=== PATIENT | male | born 1960 | race Caucasian/White ===

== ENCOUNTER 2020-02-20 08:43 | Inpatient (IN) ==
--- NOTE | 2020-02-20 09:04 | ERNOTE ---
GI Bleeding/Rectal Pain ER Presenting Symptoms: rectal bleeding Time Seen by Provider: 02/20/20 08:45 Source: patient Exam Limitations: no limitations Immunizations: IMMUNIZATION HX Immunizations Up to Date Yes History of Influenza Vaccine Yes Allergies/Adverse Reactions: Allergies No Known Allergies Allergy (Verified 02/20/20 11:45) Home Medications: HOME MEDICATIONS cephalexin 500 mg capsule 500 mg PO QID 02/15/19 [Last Taken Unknown] Furosemide [Lasix] 40 mg PO DAILY 02/15/20 [Last Taken Unknown] Mometasone Furoate/Dimethicone [Quinixil Kit] 159 gm TOPICAL BID 02/15/20 [Last Taken Unknown] Sulfamethoxazole/Trimethoprim [Bactrim Ds] 2 tab PO DAILY 02/15/20 [Last Taken Unknown] predniSONE [Prednisone] 20 mg PO BID 02/15/20 [Last Taken Unknown] Triamcinolone Acetonide [Kenalog 0.1% Cream] 1 appl TOPICAL DAILY 02/20/20 [Last Taken Unknown] Narrative: Patient went to wound center for follow up for his cellulitis. He reported there that he had been dizzy, having bloody stools, and a low blood pressure and was brought to the ER. Patient states that he usually has one BM per day, two today, stool is loose and mixed with blood the last 4-5? days, he denies nausea or vomiting, no abdominal pain. He has felt light headed, is on keflex and bactrim for leg cellulitis (also treated with an unna boot which can stay on per wound care center) as well as prednisone, patient is very vague in his history, not sure about his medications, when they have started or how long exactly he has had symptoms. He lives at home with his , admits to drinking 'a few' (five beer) every night. Timing: intermittent Nausea/Vomiting: Present: none Abdominal Pain: Present: none Rectal Bleeding: Present: blood mixed with stool Associated Symptoms: Reports: black stools, dizziness, light headedness Prior Treament: Denies: recently seen, similar symptoms before Review of Systems - Review of Systems Constitutional: Present: malaise. Absent: fever, chills ENT: Absent: nose congestion, sore throat Respiratory: Absent: shortness of breath, cough Cardiology: Absent: chest pain Gastrointestinal/Abdominal: Present: See HPI. Absent: nausea, vomiting, abdo gomez pain Genitourinary: Absent: frequency Musculoskeletal: Present: back pain Neurological: Present: dizziness/light-headedness Medical History (Last Reviewed 02/20/20 @ 09:03 by Trisha Gonsalez MD) Degenerative joint disease of right hip Onset Date: Unknown Foot fracture, left Onset Date: 03/12/18 left base 5th MT Hypertension Onset Date: Unknown Knee pain, left Onset Date: Unknown Left knee DJD Onset Date: Unknown Metatarsal fracture Onset Date: 03/12/18 left 5th Surgical History: Surgical History (Last Reviewed 02/20/20 @ 09:03 by Trisha Gonsalez MD) History of gastric bypass Onset Date: 2001 History of knee replacement procedure of left knee Onset Date: 03/24/16 History of right hip replacement Onset Date: 07/03/11 Dr. Block Family History: Family History (Last Reviewed 02/20/20 @ 11:42 by Sharifa Ahumada RN) Father Diabetes Myocardial infarction Mother Cancer lung Social History: (Last Updated 02/20/20 @ 09:04 by Trisha Gonsalez MD) Social History: Marital status: household members: spouse, children current occupational status: unemployed current occupation: unemployed Highest education level completed: Associate degree: [employer] Service: No Tobacco: Smoking Status: Never smoker Smokeless tobacco user: chewing tobacco Alcohol: alcohol intake: current Alcohol type: beer alcohol intake frequency: 3 or more drinks per day Substance Use: substance use type: does not use Dietary Habits: caffeine: No Physical Exam - Physical Exam General Appearance: Present: wd/wn, alert, no apparent distress, anxious Head Exam: Present: normal inspection Eye Exam: Normal inspection: bilateral, PERRL: bilateral Ears, Nose, Throat: Present: normal pharynx Respiratory: Present: no respiratory distress, normal breath sounds, no accessory muscle use, lungs clear Cardiovascular/Chest: Present: regular rate, rhythm, no murmur Gastrointestinal/Abdominal: Present: normal bowel sounds, nontender, nondistended, soft Rectal Exam: Present: nontender, normal rectal tone, normal prostate, other - maroon stool. Absent: hemorrhoids Extremity Exam: Present: other - dressing inplace both legs Neurological Exam: Present: alert, oriented, normal mood/affect Skin Exam: Present: normal color, warm/dry Progress - Results and Orders Patient's Lab Results:: I have reviewed the patient's lab results. - Vital Signs Patient's Vital Signs:: I have reviewed the patient's vital signs. Vital Signs: Vital Signs 02/20/20 08:45 Temperature 36.5 C Pulse Rate 90 Respiratory Rate 18 Blood Pressure 119/75 O2 Sat by Pulse Oximetry 96 - X-Ray X-Ray #1 X-Ray: chest - no acute changes Interpretation: Reviewed by me X-Ray #2 X-Ray: abdomen - no acute changes Interpretation: Reviewed by me - Progress/Reassessment Chief Complaint: General Assessment Progress Note-Subjective: 02/20/20 10:00 anoscope: no obvious lesions or mass, maroon stool 02/20/20 10:30 discussed test results with patient and (over the phone) offered admission, patient agreed He has been rather vague answering questions but now states that he started bleeding when he started his new medication most recent medication seems to be prednisone started on 02/13, patient has history of gastric bypass (is not sure if it was a stapling procedure or gustavo and Y) as stool is maroon consider and patient on prednisone consider upper GI tract as bleeding source, will start protonix 02/20/20 10:36 discussed with jose daniel De La Rosa to admit for observation for GI bleed Departure Clinical Impression: GI bleed Qualifiers: GI bleed type/associated pathology: unspecified gastrointestinal hemorrhage type Qualified Code(s): K92.2 - Gastrointestinal hemorrhage, unspecified - Departure Disposition: Still a patient Condition: Stable
[2020-02-20] MEDS ORDERED: NORMAL SALINE 500 ML IV ONE ×2 (09:09→10:58)
[2020-02-20 09:17] LABS: Hematocrit 31.1 % (42.0-52.0); Hemoglobin 10.6 gm/dL (13.5-18.0); Mean Cell Volume 90.7 fl (78-100); Mean Corpuscular Hemoglobin 30.9 pg (27-31); Mean Corpuscular Hgb Conc 34.1 g/dl (32-36); Neutrophil # 3.3 K/mm3 (1.3-6.0); Neutrophil % 60.3 % (42-75.0); Platelet Count 122 K/mm3 (150-450); Red Blood Count 3.43 M/mm3 (4.7-6.0); Red Cell Distribution Width 19.9 % (11.5-14.0); White Blood Count 5.5 K/mm3 (4.0-10.5)
[2020-02-20 09:26] LABS: Prothrombin Time (Patient) 10.7 Seconds (9.1-10.7)
[2020-02-20 09:27] LABS: INR 1.08 INR (0.92-1.08); Partial Thrombolplastin Time 23.8 Seconds (24-32)
[2020-02-20 09:40] LABS: Albumin * 2.9 gm/dl (3.4-5.0); Anion Gap 17.7 mmol/L (6.8-13.8); BUN/Creatinine Ratio 13.9 (9.0-21.6); Bilirubin, Total 1.2 mg/dL (0.0-1.1); Ca. Corrected For Albumin 8.8 mg/dL (8.4-10.2); Calcium * 8.2 mg/dL (7.9-10.9); Carbon Dioxide 26.8 mmol/L (24-32.6); Potassium 3.5 mmol/L (3.4-4.6)
[2020-02-20] MEDS ORDERED: PANTOPRAZOLE SODIUM 40 MG/100 ML PIGGYBACK IV ONE (10:37)
[2020-02-20 11:12] LABS: Hematocrit 26.4 % (42.0-52.0); Hemoglobin 9.1 gm/dL (13.5-18.0)
--- NOTE | 2020-02-20 14:52 | CONS ---
[facility] - General Date of Service: 02/20/20 Narrative: Patient is a 59-year-old male, recently admitted to the hospital regarding concern for GI bleed. He was initially seen in the wound center approximately 1 week ago regarding venous stasis dermatitis of bilateral lower extremities. At that time his legs were reddened,warm, dry and flaky. There were no open wounds or drainage. The patient had been using various ointments and wearing [id number] diabetic stockings for compression. Due to the irritation and edema, an Unna boot was placed on bilateral lower extremities. Patient had those in place when he presented to our office today. Unfortunately, his blood pressure was difficult to obtain, he was shaky and had concerns with blood in his stools. Due to his abnormal vitals and general appearance, he was taken to the Emergency Department. Following his work-up there, he was admitted for observation. He states that his legs have felt much improved since the use of the Unna boots. He states is still trying to elevate his legs when possible. He has no new concerns regarding his legs at this time. The patient's medical history includes degenerative joint disease of the right hip and left knee, with replacements, hypertension and gastric bypass. - History of Present Illness Timing/Duration: changing over time Allergies/Adverse Reactions: Allergies No Known Allergies Allergy (Verified 02/20/20 11:45) Home Medications: Home Medications Medication Instructions Recorded Last Taken cephalexin 500 mg capsule 500 mg PO QID 02/15/19 Unknown Furosemide [Lasix] 40 mg PO DAILY 02/15/20 Unknown Mometasone Furoate/Dimethicone 159 gm TOPICAL BID 02/15/20 Unknown [Quinixil Kit] Sulfamethoxazole/Trimethoprim 2 tab PO DAILY 02/15/20 Unknown [Bactrim Ds] predniSONE [Prednisone] 20 mg PO BID 02/15/20 Unknown Triamcinolone Acetonide [Kenalog 1 appl TOPICAL DAILY 02/20/20 Unknown 0.1% Cream] Procedures Replacement of Left Knee Joint with Synthetic Substitute, Cemented, Open Approach (03/24/16) Review of Systems - Review of Systems Generalized/Overall Review: Present: Weakness, Chills EENTM: Absent: Nose Congestion Respiratory: Present: Shortness of Breath. Absent: Cough Cardiac: Present: Edema. Absent: Chest Pain Abdominal: Present: Nausea, Melena. Absent: Vomiting Genitourinary: Absent: Incontinent Neurological: Absent: Headache Skin: Absent: Lesions Physical Examination - Exam Vital Signs: Vital Signs - Last Taken Temp 37.3 C 02/20/20 11:57 Pulse 96 02/20/20 11:57 Resp 24 H 02/20/20 11:57 BP 100/57 02/20/20 11:57 Pulse Ox 96 02/20/20 11:57 O2 Oxygen Delivery Method Room Air Constitutional: Present: Alert, Oriented x3, Cooperative, Obese ENT Exam: Present: hearing grossly normal Respiratory: Present: no respiratory distress Extremity: Present: normal range of motion, lower extremity edema Skin Exam: Present: normal color, warm/dry, other - The Unna boots were removed. The patient's symptoms have improved significantly from his visit last week. The redness and irritation has resolved. The edema is much better controlled. There are no open wounds. He continues to have dry flaky skin present. Eye contact: Present: good eye contact, normal speech Thoughts: Present: normal thought pattern - Results and Findings: Lab/Microbiology results last 24 hrs: Abnormal/Pending Laboratory Last 24 HRS 02/20/20 02/20/20 02/20/20 11:07 10:01 09:10 RBC Hgb 9.1 L Hct 26.4 L RDW Plt Count Immature Gran % (Auto) Immature Gran # (Auto) Monocytes % Lymphocytes # PTT ([place]) 23.8 L Anion Gap Random Glucose Total Bilirubin AST ALT Albumin Stool Occult Blood Positive H 02/20/20 02/20/20 09:10 09:10 RBC 3.43 L Hgb 10.6 L Hct 31.1 L RDW 19.9 H Plt Count 122 L Immature Gran % (Auto) 1.50 H Immature Gran # (Auto) 0.08 H Monocytes % 13.7 H Lymphocytes # 1.28 L PTT ([place]) Anion Gap 17.7 H Random Glucose 119 H Total Bilirubin 1.2 H AST 369 H ALT 117 H Albumin 2.9 L Stool Occult Blood - Assessments/Findings (1) Venous stasis dermatitis of both lower extremities Diagnosis(s): There is significant improvement with the discontinuation of the stockings he was wearing as well as the triamcinolone cream. The patient continues to experience dry flaky skin, however the edema is much better controlled. At this time would recommend using a moisturizing cream and washing his legs thoroughly with soap and water. He will be bedridden so his legs will be elevated, may consider Tubigrip. We will reevaluate tomorrow. Problem: Acute
[2020-02-20] MEDS: NORMAL SALINE 1,000 ML IV PRN ×2 (15:06→22:41)
[2020-02-20] MEDS: ONDANSETRON HCL/PF 2 MG/ML VIAL IV PRN ×2 (16:18→22:38)
[2020-02-20 17:34] LABS: Hemoglobin 8.2 gm/dL (13.5-18.0)
[2020-02-20 23:12] LABS: Hemoglobin 8.1 gm/dL (13.5-18.0)
[2020-02-20 23:16] LABS: Hematocrit 23.5 % (42.0-52.0)
[2020-02-21 05:27] LABS: Hematocrit 23.5 % (42.0-52.0); Hemoglobin 7.9 gm/dL (13.5-18.0)
[2020-02-21] MEDS: NORMAL SALINE 1,000 ML IV PRN (06:51)
[2020-02-21] MEDS ORDERED: LORazepam 2 MG/ML DISP.SYRIN IV ONE (07:09)
[2020-02-21] MEDS ORDERED: LORazepam 2 MG/ML DISP.SYRIN IV PRN (08:45)
--- NOTE | 2020-02-21 09:21 | HP ---
Chief Complaint - Chief Complaint Date of Service: 02/20/20 Time of Service: 16:00 Chief Complaint: Blood in stools History of Present Illness: Malachi is a 59 yo male who was being seen in the wound clinic for venous stasis ulcers. He was noted to not be feeling well, tachycardic, having tremor, and reported blood in his stool. He was sent to the ER for further evaluation. Hemoglobin in the ER was 10.6, stool hemoccult positive for blood. He reports being on prednisone but no blood thinners. He admits to drinking 5 beers a day. No known history of varices. He denies any prior blood in the stool. Reports are that stool was maroon in color. Medical History (Last Reviewed 02/20/20 @ 11:42 by Sharifa Ahumada RN) Degenerative joint disease of right hip Onset Date: Unknown Foot fracture, left Onset Date: 03/12/18 left base 5th MT Hypertension Onset Date: Unknown Knee pain, left Onset Date: Unknown Left knee DJD Onset Date: Unknown Metatarsal fracture Onset Date: 03/12/18 left 5th Surgical History: Surgical History (Last Reviewed 02/20/20 @ 11:42 by Sharifa Ahumada RN) History of gastric bypass Onset Date: 2001 History of knee replacement procedure of left knee Onset Date: 03/24/16 History of right hip replacement Onset Date: 07/03/11 Dr. Block Family History: Family History (Last Reviewed 02/20/20 @ 11:42 by Sharifa Ahumada RN) Father Diabetes Myocardial infarction Mother Cancer lung Social History: (Last Reviewed 02/20/20 @ 11:44 by Sharifa Ahumada RN) Social History: senior living: No Marital status: lives independently: Yes household members: spouse, children current occupational status: unemployed current occupation: unemployed Highest education level completed: Associate degree: [email or web address] Service: No Tobacco: Smoking Status: Never smoker Smokeless tobacco user: chewing tobacco quit status: considering quitting counseling given: patient declined Alcohol: alcohol intake: current Alcohol type: beer alcohol intake frequency: 3 or more drinks per day Substance Use: substance use type: does not use Dietary Habits: caffeine: No Review Of Systems (GEN) - Review of Systems Generalized/Overall Review: Present: Weakness, Diaphoresis, Fatigue. Absent: Chills, Fever EENTM: Absent: Eye Pain, Blurred Vision Cardiac: Absent: Chest Pain, Edema Abdominal: Present: Nausea, Other - maroon stools. Absent: Vomiting, Hematemesis, Abdominal Pain, Constipation, Diarrhea Genitourinary: Absent: Burning, Itching Musculoskeletal: Absent: Joint Pain, Back Pain Neurological: Absent: Headache, Anxiety Skin: Present: Other - wounds on legs have healed Immunizations: IMMUNIZATION HX Immunizations Up to Date Yes History of Influenza Vaccine Yes Allergies/Adverse Reactions: Allergies Allergy/AdvReac Type Severity Reaction Status Date / Time No Known Allergies Allergy Verified 02/20/20 11:45 Home Medications: HOME MEDICATIONS cephalexin 500 mg capsule 500 mg PO QID 02/15/19 [Last Taken Unknown] Furosemide [Lasix] 40 mg PO DAILY 02/15/20 [Last Taken Unknown] Mometasone Furoate/Dimethicone [Quinixil Kit] 159 gm TOPICAL BID 02/15/20 [Last Taken Unknown] Sulfamethoxazole/Trimethoprim [Bactrim Ds] 2 tab PO DAILY 02/15/20 [Last Taken Unknown] predniSONE [Prednisone] 20 mg PO BID 02/15/20 [Last Taken Unknown] Triamcinolone Acetonide [Kenalog 0.1% Cream] 1 appl TOPICAL DAILY 02/20/20 [Last Taken Unknown] Exam - Exam Vital Signs: Vital Signs - Last Taken Temp 36.8 C 02/21/20 06:38 Pulse 81 02/21/20 06:38 Resp 14 02/21/20 06:38 BP 140/73 H 02/21/20 06:38 Pulse Ox 93 02/21/20 06:38 Constitutional: Present: Alert, Oriented x3, Cooperative, Other - tremors ENT Exam: Present: hearing grossly normal Eye Exam: bilateral eye: normal inspection Respiratory: Present: lungs clear, normal breath sounds Cardiovascular/Chest: Present: no murmur, tachycardia Abdomen: Present: Normal bowel sounds, soft, nontender, nondistended Skin Exam: Present: other - dry skin, no active wounds Appearance: Present: other - anxious Eye contact: Present: cooperative, good eye contact, increased rate of speech Thoughts: Present: normal thought pattern, no apparent hallucination Diagnostic Studies: Abnormal Lab Results 02/20/20 02/20/20 02/20/20 Range/Units 09:10 09:10 09:10 RBC 3.43 L (4.7-6.0) M/mm3 Hgb 10.6 L (13.5-18.0) gm/dL Hct 31.1 L (42.0-52.0) % RDW 19.9 H (11.5-14.0) % Plt Count 122 L (150-450) K/mm3 Immature Gran % (Auto) 1.50 H (0.001-0.429) % Immature Gran # (Auto) 0.08 H (0.000-0.0310) K/mm3 Monocytes % 13.7 H (0.0-9) % Lymphocytes # 1.28 L (1.5-3.5) k/mm3 PTT ([place]) 23.8 L (24-32) Seconds Anion Gap 17.7 H (6.8-13.8) mmol/L Random Glucose 119 H (70-110) mg/dL Total Bilirubin 1.2 H (0.0-1.1) mg/dL AST 369 H (0-48) U/L ALT 117 H (19-67) U/L Albumin 2.9 L (3.4-5.0) gm/dl Stool Occult Blood 02/20/20 02/20/20 02/20/20 Range/Units 10:01 11:07 17:28 RBC (4.7-6.0) M/mm3 Hgb 9.1 L 8.2 L (13.5-18.0) gm/dL Hct 26.4 L 24.0 L (42.0-52.0) % RDW (11.5-14.0) % Plt Count (150-450) K/mm3 Immature Gran % (Auto) (0.001-0.429) % Immature Gran # (Auto) (0.000-0.0310) K/mm3 Monocytes % (0.0-9) % Lymphocytes # (1.5-3.5) k/mm3 PTT ([place]) (24-32) Seconds Anion Gap (6.8-13.8) mmol/L Random Glucose (70-110) mg/dL Total Bilirubin (0.0-1.1) mg/dL AST (0-48) U/L ALT (19-67) U/L Albumin (3.4-5.0) gm/dl Stool Occult Blood Positive H 02/20/20 02/21/20 Range/Units 23:10 05:15 RBC (4.7-6.0) M/mm3 Hgb 8.1 L 7.9 L* (13.5-18.0) gm/dL Hct 23.5 L* 23.5 L* (42.0-52.0) % RDW (11.5-14.0) % Plt Count (150-450) K/mm3 Immature Gran % (Auto) (0.001-0.429) % Immature Gran # (Auto) (0.000-0.0310) K/mm3 Monocytes % (0.0-9) % Lymphocytes # (1.5-3.5) k/mm3 PTT ([place]) (24-32) Seconds Anion Gap (6.8-13.8) mmol/L Random Glucose (70-110) mg/dL Total Bilirubin (0.0-1.1) mg/dL AST (0-48) U/L ALT (19-67) U/L Albumin (3.4-5.0) gm/dl Stool Occult Blood Laboratory Results WBC 5.5 K/mm3 (4.0-10.5) 02/20/20 09:10 RBC 3.43 M/mm3 (4.7-6.0) L 02/20/20 09:10 Hgb 7.9 gm/dL (13.5-18.0) L* 02/21/20 05:15 Hct 23.5 % (42.0-52.0) L* 02/21/20 05:15 MCV 90.7 fl (78-100) 02/20/20 09:10 MCH 30.9 pg (27-31) 02/20/20 09:10 MCHC 34.1 g/dl (32-36) 02/20/20 09:10 RDW 19.9 % (11.5-14.0) H 02/20/20 09:10 Plt Count 122 K/mm3 (150-450) L 02/20/20 09:10 MPV 10.0 fl (8-11.3) 02/20/20 09:10 Immature Gran % (Auto) 1.50 % (0.001-0.429) H 02/20/20 09:10 Immature Gran # (Auto) 0.08 K/mm3 (0.000-0.0310) H 02/20/20 09:10 Neutrophils % 60.3 % (42-75.0) 02/20/20 09:10 Lymphocytes % 23.4 % (20-51) 02/20/20 09:10 Monocytes % 13.7 % (0.0-9) H 02/20/20 09:10 Eosinophils % 0.4 % (0.0-3.0) 02/20/20 09:10 Basophils % 0.7 % (0.0-1.0) 02/20/20 09:10 Nucleated RBC % 0.0 k/mm3 (0-1) 02/20/20 09:10 Neutrophils # 3.3 K/mm3 (1.3-6.0) 02/20/20 09:10 Lymphocytes # 1.28 k/mm3 (1.5-3.5) L 02/20/20 09:10 Monocytes # 0.8 k/mm3 (0.0-1.0) 02/20/20 09:10 Eosinophils # 0.0 k/mm3 (0.0-0.7) 02/20/20 09:10 Absolute Basophils 0.0 k/mm3 (0.0-0.1) 02/20/20 09:10 PT 10.7 Seconds (9.1-10.7) 02/20/20 09:10 INR (Anticoag Therapy) 1.08 INR (0.92-1.08) 02/20/20 09:10 PTT ([place]) 23.8 Seconds (24-32) L 02/20/20 09:10 Sodium 142 mmol/L (132-142) 02/20/20 09:10 Plasma Sodium 142 mmol/L (130-142) 02/20/20 09:10 Potassium 3.5 mmol/L (3.4-4.6) 02/20/20 09:10 Chloride 101 mmol/L (97-106) 02/20/20 09:10 Carbon Dioxide 26.8 mmol/L (24-32.6) 02/20/20 09:10 Anion Gap 17.7 mmol/L (6.8-13.8) H 02/20/20 09:10 BUN 15 mg/dL (6-23) 02/20/20 09:10 Creatinine 1.08 mg/dL (0.4-1.4) 02/20/20 09:10 Est GFR (Non-Af Amer) 75 mL/min (60-130) D 02/20/20 09:10 BUN/Creatinine Ratio 13.9 (9.0-21.6) 02/20/20 09:10 Random Glucose 119 mg/dL (70-110) H 02/20/20 09:10 Calcium 8.2 mg/dL (7.9-10.9) 02/20/20 09:10 Calcium Adj for Albumin 8.8 mg/dL (8.4-10.2) 02/20/20 09:10 Total Bilirubin 1.2 mg/dL (0.0-1.1) H 02/20/20 09:10 AST 369 U/L (0-48) H 02/20/20 09:10 ALT 117 U/L (19-67) H 02/20/20 09:10 Alkaline Phosphatase 140 U/L (50-170) 02/20/20 09:10 B-Natriuretic Peptide 28 pg/mL (5-175) 02/20/20 09:10 Total Protein 7.0 gm/dL (6.2-8.2) 02/20/20 09:10 Albumin 2.9 gm/dl (3.4-5.0) L 02/20/20 09:10 Stool Occult Blood Positive H 02/20/20 10:01 Assessment/Plan - Narrative Narrative: Malachi is a 59 yo male with: 1) GI Bleed. Will make NPO, place on IV prontonix, get serial hemoglobin, and plan to get nuclear bleeding scan. May need surgery referral. Unknown bleeding site which the nuclear scan may help with. Possible varices due to alcohol history vs alcoholic gastritis vs lower intestinal source. 2) Alcohol abuse - Will monitor CIWA and use ativan prn. 3) Social - Will admit to observation at this time. If hemoglobin drops he may need admitted to inpatient status and receive blood transfusion. - Assessment/Plan (1) GI bleed Problem: Acute Qualifiers: GI bleed type/associated pathology: unspecified gastrointestinal hemorrhage type Qualified Code(s): K92.2 - Gastrointestinal hemorrhage, unspecified (2) Alcohol abuse Problem: Acute
[2020-02-21] MEDS: FOLIC ACID 1 MG TABLET PO SCH (10:22)
[2020-02-21] MEDS: THIAMINE HCL 100 MG TABLET PO SCH (10:22)
[2020-02-21] MEDS: PANTOPRAZOLE SODIUM 40 MG in NORMAL SALINE 100 ML IV SCH ×2 (10:22→20:17)
[2020-02-21 11:25] LABS: Hematocrit 22.5 % (42.0-52.0); Hemoglobin 7.7 gm/dL (13.5-18.0)
[2020-02-21] MEDS ORDERED: LORazepam 0.5 MG TABLET PO ONE (14:21)
[2020-02-21] MEDS ORDERED: HYDROCORTISONE 30 APPL TUBE TP ONE ×2 (17:10→21:00)
[2020-02-21] MEDS: FERROUS SULFATE 325 MG TABLET PO SCH (17:19)
[2020-02-21] MEDS: LORazepam 1 MG TABLET PO SCH (20:16)
--- NOTE | 2020-02-21 23:26 | PN ---
Subjective - Date and Time Seen Date: 02/21/20 Time: 10:00 Subjective Narrative: Bloody stools have become less frequent, he denies abdominal pain. He has had a lot of tremoring and is unstable on his feet. GI bleeding scan was negative. Hemoglobin has been stable. Objective - Vitals Vitals: Last Vital Signs Temp 36.8 C 02/21/20 18:31 Pulse 81 02/21/20 18:31 Resp 18 02/21/20 18:31 BP 128/71 02/21/20 18:31 Pulse Ox 96 02/21/20 18:31 - Abnormal Lab Findings Abnormal Lab Findings: Abnormal Lab Results 02/20/20 02/21/20 02/21/20 Range/Units 23:10 05:15 11:12 Hgb 8.1 L 7.9 L* 7.7 L* (13.5-18.0) gm/dL Hct 23.5 L* 23.5 L* 22.5 L* (42.0-52.0) % - Exam Constitutional: Present: Alert, Oriented x3, Cooperative ENT Exam: Present: hearing grossly normal Respiratory: Present: lungs clear, normal breath sounds Cardiovascular/Chest: Present: regular rate, rhythm, no murmur Abdomen: Present: Normal bowel sounds, soft, nontender, nondistended Skin Exam: Present: normal color, no cyanosis, other - skin is dry and flaky Assessment/Plan Plan Narrative: GI bleed has appeared to stop based on normal bleeding scan and stable hemoglobin. Will continue protonix and start iron supplements. He is having significant CIWA, will schedule oral ativan. Will continue to monitor hemoglobin as I advance diet. - Problems/Diagnosis (1) GI bleed Problem: Acute Qualifiers: GI bleed type/associated pathology: unspecified gastrointestinal hemorrhage type Qualified Code(s): K92.2 - Gastrointestinal hemorrhage, unspecified (2) Alcohol abuse Problem: Acute
[2020-02-22] MEDS: LORazepam 2 MG/ML DISP.SYRIN IV PRN ×6 (00:24→23:42)
[2020-02-22] MEDS: LORazepam 1 MG TABLET PO SCH ×5 (01:08→20:39)
[2020-02-22 06:16] LABS: Mean Cell Volume 93.3 fl (78-100); Mean Corpuscular Hemoglobin 31.5 pg (27-31); Mean Corpuscular Hgb Conc 33.8 g/dl (32-36); Mean Platelet Volume 10.1 fl (8-11.3); Neutrophil # 4.1 K/mm3 (1.3-6.0); Neutrophil % 70.9 % (42-75.0); Platelet Count 109 K/mm3 (150-450); Red Blood Count 2.38 M/mm3 (4.7-6.0); Red Cell Distribution Width 19.9 % (11.5-14.0); White Blood Count 5.8 K/mm3 (4.0-10.5)
[2020-02-22 06:26] LABS: Hemoglobin 7.5 gm/dL (13.5-18.0)
[2020-02-22 06:27] LABS: Albumin * 2.7 gm/dl (3.4-5.0); Anion Gap 16.3 mmol/L (6.8-13.8); BUN/Creatinine Ratio 8.3 (9.0-21.6); Bilirubin, Total 1.6 mg/dL (0.0-1.1); Ca. Corrected For Albumin 8.5 mg/dL (8.4-10.2); Calcium * 7.8 mg/dL (7.9-10.9); Carbon Dioxide 24.9 mmol/L (24-32.6); Hematocrit 22.2 % (42.0-52.0); Potassium 3.2 mmol/L (3.4-4.6); Total Protein 5.8 gm/dL (6.2-8.2)
[2020-02-22] MEDS: FOLIC ACID 1 MG TABLET PO SCH (08:02)
[2020-02-22] MEDS: THIAMINE HCL 100 MG TABLET PO SCH (08:02)
[2020-02-22] MEDS: PANTOPRAZOLE SODIUM 40 MG in NORMAL SALINE 100 ML IV SCH ×2 (08:02→20:39)
[2020-02-22] MEDS: FERROUS SULFATE 325 MG TABLET PO SCH ×3 (08:02→17:29)
[2020-02-23] MEDS: LORazepam 1 MG TABLET PO SCH ×4 (02:56→21:53)
[2020-02-23] MEDS ORDERED: NORMAL SALINE 1,000 ML IV ONE (09:22)
[2020-02-23] MEDS: PANTOPRAZOLE SODIUM 40 MG TABLET.EC PO SCH ×2 (09:29→21:53)
[2020-02-23] MEDS: PANTOPRAZOLE SODIUM 40 MG in NORMAL SALINE 100 ML IV SCH (09:31)
[2020-02-23 09:33] LABS: Hematocrit 24.8 % (42.0-52.0); Hemoglobin 8.2 gm/dL (13.5-18.0); Mean Cell Volume 96.1 fl (78-100); Mean Corpuscular Hemoglobin 31.8 pg (27-31); Mean Corpuscular Hgb Conc 33.1 g/dl (32-36); Mean Platelet Volume 10.1 fl (8-11.3); NRBC# 0.1 k/mm3 (0-1); Neutrophil # 5.7 K/mm3 (1.3-6.0); Neutrophil % 67.4 % (42-75.0); Platelet Count 148 K/mm3 (150-450); Red Blood Count 2.58 M/mm3 (4.7-6.0); Red Cell Distribution Width 20.7 % (11.5-14.0); White Blood Count 8.4 K/mm3 (4.0-10.5)
[2020-02-23 09:53] LABS: BUN/Creatinine Ratio 5.8 (9.0-21.6)
[2020-02-23 09:54] LABS: Albumin * 2.7 gm/dl (3.4-5.0); Anion Gap 17.6 mmol/L (6.8-13.8); Bilirubin, Total 2.2 mg/dL (0.0-1.1); Ca. Corrected For Albumin 8.7 mg/dL (8.4-10.2); Carbon Dioxide 22.5 mmol/L (24-32.6); Potassium 3.1 mmol/L (3.4-4.6); Troponin I 0.02 ng/mL (0.00-0.10)
[2020-02-23] MEDS: FOLIC ACID 1 MG TABLET PO SCH (10:18)
[2020-02-23] MEDS: FERROUS SULFATE 325 MG TABLET PO SCH ×3 (10:19→16:47)
[2020-02-23] MEDS: THIAMINE HCL 100 MG TABLET PO SCH (10:19)
--- NOTE | 2020-02-23 11:15 | PN ---
Subjective - Date and Time Seen Date: 02/22/20 Time: 12:00 Subjective Narrative: Patient extremely confused, restless, and combative at times. He has difficulty orientating. Stool frequency is much less and hemoglobin is stable. CIWA scores have been 20+. Objective - Vitals Vitals: Last Vital Signs Selected Entries 02/22/20 11:42 Temperature 36.3 C Pulse Rate 104 H Respiratory Rate 18 Blood Pressure 110/72 O2 Sat by Pulse Oximetry 99 Oxygen Delivery Method Room Air - Abnormal Lab Findings Abnormal Lab Findings: Abnormal Lab Results 02/23/20 Range/Units 09:25 RBC 2.58 L (4.7-6.0) M/mm3 Hgb 8.2 L (13.5-18.0) gm/dL Hct 24.8 L (42.0-52.0) % MCH 31.8 H (27-31) pg RDW 20.7 H (11.5-14.0) % Plt Count 148 L (150-450) K/mm3 Immature Gran % (Auto) 1.10 H (0.001-0.429) % Immature Gran # (Auto) 0.09 H (0.000-0.0310) K/mm3 Lymphocytes % 12.9 L (20-51) % Monocytes % 13.7 H (0.0-9) % Eosinophils % 4.2 H (0.0-3.0) % Lymphocytes # 1.08 L (1.5-3.5) k/mm3 Monocytes # 1.2 H (0.0-1.0) k/mm3 - Exam Constitutional: Present: Alert, Other - patient hallucinating, confused, difficult to orient. Absent: Oriented x3 Respiratory: Present: lungs clear, normal breath sounds Cardiovascular/Chest: Present: no murmur, tachycardia Abdomen: Present: Normal bowel sounds, soft, nontender, nondistended Skin Exam: Present: other - dry and flaky, no open wounds Assessment/Plan Plan Narrative: GI Bleed appears to be resolved based on stable hemoglobin and normal bleeding scan. He is not safe to go home today due to CIWA >20 despite scheduled ativan, will increase dose of ativan to 1mg PO every 6 hours and give IV ativan PRN based on CIWA. He is medically stable to go home once he is safe from an alcohol withdrawal standpoint. - Problems/Diagnosis (1) Alcohol withdrawal delirium Problem: Acute (2) GI bleed Problem: Resolved Qualifiers: GI bleed type/associated pathology: unspecified gastrointestinal hemorrhage type Qualified Code(s): K92.2 - Gastrointestinal hemorrhage, unspecified (3) Alcohol abuse Problem: Acute
--- NOTE | 2020-02-23 23:46 | PN ---
Subjective - Date and Time Seen Date: 02/23/20 Time: 08:15 Subjective Narrative: Malachi was doing well this morning. CIWA was minimal and he was stronger and les confused today. While on the toilet he appeared to vasovagal and became hypotensive and had a syncopal episode. He was placed back in bed and became combative and aggressive. Eventually he was calmed down. He had a bloody stool. Labs were rechecked and hemoglobin was actually improved. He was given a bolus of IV fluids due to hypotension and his blood pressure improved. Objective - Vitals Vitals: Last Vital Signs Temp 36.7 C 02/23/20 18:00 Pulse 93 02/23/20 18:00 Resp 18 02/23/20 18:00 BP 125/77 02/23/20 18:00 Pulse Ox 100 02/23/20 18:00 - Abnormal Lab Findings Abnormal Lab Findings: Abnormal Lab Results 02/23/20 02/23/20 Range/Units 09:25 09:25 RBC 2.58 L (4.7-6.0) M/mm3 Hgb 8.2 L (13.5-18.0) gm/dL Hct 24.8 L (42.0-52.0) % MCH 31.8 H (27-31) pg RDW 20.7 H (11.5-14.0) % Plt Count 148 L (150-450) K/mm3 Immature Gran % (Auto) 1.10 H (0.001-0.429) % Immature Gran # (Auto) 0.09 H (0.000-0.0310) K/mm3 Lymphocytes % 12.9 L (20-51) % Monocytes % 13.7 H (0.0-9) % Eosinophils % 4.2 H (0.0-3.0) % Lymphocytes # 1.08 L (1.5-3.5) k/mm3 Monocytes # 1.2 H (0.0-1.0) k/mm3 Potassium 3.1 L (3.4-4.6) mmol/L Carbon Dioxide 22.5 L (24-32.6) mmol/L Anion Gap 17.6 H (6.8-13.8) mmol/L BUN/Creatinine Ratio 5.8 L (9.0-21.6) Random Glucose 111 H (70-110) mg/dL Total Bilirubin 2.2 H (0.0-1.1) mg/dL AST 292 H (0-48) U/L ALT 140 H (19-67) U/L Total Protein 6.0 L (6.2-8.2) gm/dL Albumin 2.7 L (3.4-5.0) gm/dl - Exam Constitutional: Present: Alert, Oriented x3 ENT Exam: Present: hearing grossly normal Respiratory: Present: lungs clear, normal breath sounds, no respiratory distress Cardiovascular/Chest: Present: regular rate, rhythm, no murmur Abdomen: Present: Normal bowel sounds, soft, nontender, nondistended Skin Exam: Present: warm/dry, no cyanosis, pallor Assessment/Plan Plan Narrative: Hemoglobin improved today. He had a vasovagal episode while having a bowel movement. Dr. Leon called, but he improved with fluid bolus. Due to this episode will monitor him another night and plan to discharge to home tomorrow if he is doing well. - Problems/Diagnosis (1) Alcohol withdrawal delirium Problem: Acute (2) GI bleed Problem: Resolved Qualifiers: GI bleed type/associated pathology: unspecified gastrointestinal hemorrhage type Qualified Code(s): K92.2 - Gastrointestinal hemorrhage, unspecified (3) Alcohol abuse Problem: Acute
[2020-02-24] MEDS: LORazepam 1 MG TABLET PO SCH ×2 (02:40→08:59)
[2020-02-24 06:44] LABS: Albumin * 2.4 gm/dl (3.4-5.0); Anion Gap 10.5 mmol/L (6.8-13.8); Bilirubin, Total 1.9 mg/dL (0.0-1.1); Ca. Corrected For Albumin 8.7 mg/dL (8.4-10.2); Calcium * 7.7 mg/dL (7.9-10.9); Carbon Dioxide 29.4 mmol/L (24-32.6); Potassium 2.9 mmol/L (3.4-4.6); Total Protein 5.4 gm/dL (6.2-8.2)
[2020-02-24 06:51] LABS: Mean Cell Volume 96.4 fl (78-100); Mean Corpuscular Hemoglobin 31.6 pg (27-31); Mean Corpuscular Hgb Conc 32.7 g/dl (32-36); Mean Platelet Volume 10.8 fl (8-11.3); Neutrophil # 2.8 K/mm3 (1.3-6.0); Neutrophil % 64.8 % (42-75.0); Platelet Count 144 K/mm3 (150-450); Red Blood Count 2.25 M/mm3 (4.7-6.0); Red Cell Distribution Width 20.8 % (11.5-14.0); White Blood Count 4.3 K/mm3 (4.0-10.5)
[2020-02-24 07:01] LABS: Hemoglobin 7.1 gm/dL (13.5-18.0)
[2020-02-24 07:02] LABS: Hematocrit 21.7 % (42.0-52.0)
[2020-02-24] MEDS: PANTOPRAZOLE SODIUM 40 MG TABLET.EC PO SCH (07:48)
[2020-02-24] MEDS ORDERED: POTASSIUM CHLORIDE 20 MEQ TABLET.SA PO ONE (08:32)
[2020-02-24] MEDS: THIAMINE HCL 100 MG TABLET PO SCH (08:59)
[2020-02-24] MEDS: FOLIC ACID 1 MG TABLET PO SCH (08:59)
[2020-02-24] MEDS: FERROUS SULFATE 325 MG TABLET PO SCH (09:00)
[2020-02-24 12:09] LABS: Hematocrit 24.5 % (42.0-52.0); Hemoglobin 8.1 gm/dL (13.5-18.0); Mean Cell Volume 96.8 fl (78-100); Mean Corpuscular Hgb Conc 33.1 g/dl (32-36); Mean Platelet Volume 9.9 fl (8-11.3); Neutrophil # 3.5 K/mm3 (1.3-6.0); Neutrophil % 68.7 % (42-75.0); Platelet Count 146 K/mm3 (150-450); Red Blood Count 2.53 M/mm3 (4.7-6.0)
[2020-02-24 12:23] LABS: Albumin * 2.7 gm/dl (3.4-5.0); Anion Gap 11.4 mmol/L (6.8-13.8); BUN/Creatinine Ratio 8.8 (9.0-21.6); Bilirubin, Total 2.1 mg/dL (0.0-1.1); Ca. Corrected For Albumin 8.4 mg/dL (8.4-10.2); Calcium * 7.7 mg/dL (7.9-10.9); Carbon Dioxide 27.7 mmol/L (24-32.6); Potassium 3.1 mmol/L (3.4-4.6); Total Protein 6.1 gm/dL (6.2-8.2)
--- NOTE | 2020-02-24 13:23 | DS ---
(1) Alcohol withdrawal delirium Problem: Acute (2) GI bleed Problem: Resolved Qualifiers: GI bleed type/associated pathology: unspecified gastrointestinal hemorrhage type Qualified Code(s): K92.2 - Gastrointestinal hemorrhage, unspecified (3) Alcohol abuse Problem: Acute Date of Discharge:: 02/24/20 Hospital Course: Malachi was admitted due to GI bleed in observation. His hemoglobin was initially 10 but continued to trend down to 7. He was admitted to inpatient due to the continue bloody stools and falling hemoglobin as well as his alcohol withdrawal with delirium. He was made NPO and placed on IV protonix. He had a nuclear bleeding scan that showed no acute bleeding and his hemoglobin stabilized without any blood transfusions. He was put on ativan with CIWA monitoring and over time improved. He did have a vasovagal episode yesterday with syncope and he was monitored another day because of that. His hemoglobin remained stable and was 8.1 today. He will be discharged to home on daily protonix and iron and to avoid alcohol. Follow up with PCP in a week. Will need to recheck CBC and CMP. Procedures Performed: none Results and Findings: Lab Pending Results 02/20/20 09:10: WBC 5.5, RBC 3.43 L, Hgb 10.6 L, Hct 31.1 L, MCV 90.7, MCH 30.9, MCHC 34.1, RDW 19.9 H, Plt Count 122 L, MPV 10.0, Immature Gran % (Auto) 1.50 H, Immature Gran # (Auto) 0.08 H, Neutrophils % 60.3, Lymphocytes % 23.4, Monocytes % 13.7 H, Eosinophils % 0.4, Basophils % 0.7, Nucleated RBC % 0.0, Neutrophils # 3.3, Lymphocytes # 1.28 L, Monocytes # 0.8, Eosinophils # 0.0, Absolute Basophils 0.0 02/20/20 09:10: Sodium 142, Plasma Sodium 142, Potassium 3.5, Chloride 101, Carbon Dioxide 26.8, Anion Gap 17.7 H, BUN 15, Creatinine 1.08, Est GFR (Non-Af Amer) 75 D, BUN/Creatinine Ratio 13.9, Random Glucose 119 H, Calcium 8.2, Calcium Adj for Albumin 8.8, Total Bilirubin 1.2 H, AST 369 H, ALT 117 H, Alkaline Phosphatase 140, B-Natriuretic Peptide 28, Total Protein 7.0, Albumin 2.9 L 02/20/20 09:10: PT 10.7, INR (Anticoag Therapy) 1.08, PTT (Rubina) 23.8 L 02/20/20 10:01: Stool Occult Blood Positive H 02/20/20 11:07: Hgb 9.1 L, Hct 26.4 L 02/20/20 17:28: Hgb 8.2 L, Hct 24.0 L 02/20/20 23:10: Hgb 8.1 L, Hct 23.5 L* 02/21/20 05:15: Hgb 7.9 L*, Hct 23.5 L* 02/21/20 11:12: Hgb 7.7 L*, Hct 22.5 L* 02/22/20 06:05: WBC 5.8, RBC 2.38 L, Hgb 7.5 L*, Hct 22.2 L*, MCV 93.3, MCH 31.5 H, MCHC 33.8, RDW 19.9 H, Plt Count 109 L, MPV 10.1, Immature Gran % (Auto) 1.40 H, Immature Gran # (Auto) 0.08 H, Neutrophils % 70.9, Lymphocytes % 10.2 L, Monocytes % 12.9 H, Eosinophils % 4.3 H, Basophils % 0.3, Nucleated RBC % 0.0, Neutrophils # 4.1, Lymphocytes # 0.59 L, Monocytes # 0.8, Eosinophils # 0.3, Absolute Basophils 0.0 02/22/20 06:05: Sodium 138, Plasma Sodium 138, Potassium 3.2 L, Chloride 100, Carbon Dioxide 24.9, Anion Gap 16.3 H, BUN 6 D, Creatinine 0.72, Est GFR (Non- Af Amer) 119 D, BUN/Creatinine Ratio 8.3 L, Random Glucose 102, Calcium 7.8 L, Calcium Adj for Albumin 8.5, Total Bilirubin 1.6 H, AST 230 H, ALT 100 H, Alkaline Phosphatase 129, Total Protein 5.8 L, Albumin 2.7 L 02/23/20 09:25: WBC 8.4 D, RBC 2.58 L, Hgb 8.2 L, Hct 24.8 L, MCV 96.1, MCH 31.8 H, MCHC 33.1, RDW 20.7 H, Plt Count 148 L, MPV 10.1, Immature Gran % (Auto) 1.10 H, Immature Gran # (Auto) 0.09 H, Neutrophils % 67.4, Lymphocytes % 12.9 L, Monocytes % 13.7 H, Eosinophils % 4.2 H, Basophils % 0.7, Nucleated RBC % 0.1, Neutrophils # 5.7, Lymphocytes # 1.08 L, Monocytes # 1.2 H, Eosinophils # 0.4, Absolute Basophils 0.1 02/23/20 09:25: Sodium 138, Plasma Sodium 138, Potassium 3.1 L, Chloride 101, Ca rbon Dioxide 22.5 L, Anion Gap 17.6 H, BUN 6, Creatinine 1.03, Est GFR (Non-Af Amer) 79 D, BUN/Creatinine Ratio 5.8 L, Random Glucose 111 H, Calcium 8.0, Calcium Adj for Albumin 8.7, Total Bilirubin 2.2 H, AST 292 H, ALT 140 H, Alkaline Phosphatase 163, Troponin I 0.020, Total Protein 6.0 L, Albumin 2.7 L 02/23/20 09:25: Blood Type O Positive, Antibody Screen Negative 02/24/20 06:22: WBC 4.3 D, RBC 2.25 L, Hgb 7.1 L*, Hct 21.7 L*, MCV 96.4, MCH 31.6 H, MCHC 32.7, RDW 20.8 H, Plt Count 144 L, MPV 10.8, Immature Gran % (Auto) 0.90 H, Immature Gran # (Auto) 0.04 H, Neutrophils % 64.8, Lymphocytes % 10.3 L, Monocytes % 17.4 H, Eosinophils % 5.9 H, Basophils % 0.7, Nucleated RBC % 0.0, Neutrophils # 2.8, Lymphocytes # 0.44 L, Monocytes # 0.7, Eosinophils # 0.3, Absolute Basophils 0.0 02/24/20 06:22: Sodium 142, Plasma Sodium 142, Potassium 2.9 L, Chloride 105, Carbon Dioxide 29.4, Anion Gap 10.5, BUN 4 L, Creatinine 0.67, Est GFR (Non-Af Amer) 129 D, BUN/Creatinine Ratio 6.0 L, Random Glucose 113 H, Calcium 7.7 L, Calcium Adj for Albumin 8.7, Total Bilirubin 1.9 H, AST 198 H, ALT 120 H, Alkaline Phosphatase 130, Total Protein 5.4 L, Albumin 2.4 L 02/24/20 12:08: WBC 5.0, RBC 2.53 L, Hgb 8.1 L, Hct 24.5 L, MCV 96.8, MCH 32.0 H, MCHC 33.1, RDW 21.0 H, Plt Count 146 L, MPV 9.9, Immature Gran % (Auto) 1.00 H, Immature Gran # (Auto) 0.05 H, Neutrophils % 68.7, Lymphocytes % 9.0 L, Monocytes % 16.5 H, Eosinophils % 4.2 H, Basophils % 0.6, Nucleated RBC % 0.0, Neutrophils # 3.5, Lymphocytes # 0.45 L, Monocytes # 0.8, Eosinophils # 0.2, Absolute Basophils 0.0 02/24/20 12:08: Sodium 135, Plasma Sodium 135, Potassium 3.1 L, Chloride 99, Carbon Dioxide 27.7, Anion Gap 11.4, BUN 6, Creatinine 0.68, Est GFR (Non-Af Amer) 127, BUN/Creatinine Ratio 8.8 L, Random Glucose 105, Calcium 7.7 L, Calcium Adj for Albumin 8.4, Total Bilirubin 2.1 H, AST 225 H, ALT 136 H, Alkaline Phosphatase 152, Total Protein 6.1 L, Albumin 2.7 L Discharge Location: Home Disposition: Home self-care Condition: Stable Discharge Activity: Activity as tolerated Discharge Diet: General/regular food - no alcohol Referrals: Lukasz Murphy MD [Primary Care Provider] - One Week Problem Oriented Discharge Instructions to Patient/Family: Gastrointestinal Bleeding, [id number], Alcohol Withdrawal Syndrome, [id number] Additional Patient Instructions (free text): No ibuprofen, aleve, or aspirin. Avoid alcohol as all of these things can cause GI bleeds. Prescriptions (Any new or edited meds): LORazepam [Ativan] 1 mg PO Q6H PRN #60 tab PRN Reason: Anxiety Transmission Status: Received by [facility] Ferrous Sulfate 325 mg PO TIDWM #90 tab Transmission Status: Pending to [facility] Pantoprazole Sodium [Protonix] 40 mg PO DAILY #30 tab Transmission Status: Pending to [facility] Complete Home Medications List: Complete Home Medication List: Furosemide [Lasix] 40 mg PO DAILY 02/15/20 Mometasone Furoate/Dimethicone [Quinixil 0.1% Cream-5% Crm Kit] 159 gm TOPICAL BID 02/15/20 Triamcinolone Acetonide [Kenalog 0.1% Cream] 1 appl TOPICAL DAILY 02/20/20 Ferrous Sulfate 325 mg PO TIDWM #90 tab 02/24/20 LORazepam [Ativan] 1 mg PO Q6H PRN #60 tab 02/24/20 Pantoprazole Sodium [Protonix] 40 mg PO DAILY #30 tab 02/24/20 Forms: Patient Portal Registration
[2020-02-24 14:25] VITALS: BP 116/79
== END 2020-02-24 14:15 | disposition home or self-care (01) | DRG 378 ==
LOC: ER 08:43 → MS 08:43
PROVIDERS: ADMIT Family Medicine; ATTEND Family Medicine
DX: I87.2 Venous insufficiency (chronic) (peripheral); K92.2 Gastrointestinal hemorrhage, unspecified; R55 Syncope and collapse; I10 Essential (primary) hypertension; F17.220 Nicotine dependence, chewing tobacco, uncomplicated; F10.231 Alcohol dependence with withdrawal delirium; R06.02 Shortness of breath
CPT/HCPCS: 36415; 71010; 71045; 74019; 74020; 78278; 80053; 82272; 83519; 83880; 84484; 85014; 85018; 85025; 85610; 85730; 86850; 87081; 96365; 96375; 96376; 99284; 99285; A9560; G0378; J2405